=== PATIENT | male | born 1955 | race African-American/Black ===

== ENCOUNTER 2017-06-25 13:13 | Inpatient (IN) | payer OTHER ==
--- NOTE | 2017-06-25 13:24 | PDOC ---
Attending Attestation - HPI HPI: 06/25/17 15:42 33 year old male, with significant past medical history of AIDs (CD4 254 on 02/15 ), Hep C, left visual eye loss, depression, who presents to the emergency room from [facility] complaining of sharp pleuritic chest pain that is a 4/10 in severity and worse with taking a deep breath. He had an Xray performed at [facility] that revealed a cavitary lesion and right lower lobe infiltrate. <Izzy Deras - Last Filed: 06/25/17 15:42> - Resident Resident Name: Liliana Lopez - ED Attending Attestation I have performed the following: I have examined & evaluated the patient, The case was reviewed & discussed with the resident, I agree w/resident's findings & plan, Exceptions are as noted - Physicial Exam PE: 06/27/17 09:30 gen: aaox3, nad heart: +s1s2 reg Lungs: cta b/l Abd: soft, nt/nd +bs, scaphoid abd ext: no c/c/e, no rash - Medical Decision Making 06/25/17 13:24 I, Dr. Keturah Araiza, DO, attest that this document has been prepared under my direction and personally reviewed by me in its entirety. I further attest, that it accurately reflects all work, treatment, procedures and medical decision -making performed by me. 06/25/17 14:55 a/p: 61yo male with HIV +, undetectable viral load, CD4 was 252 with RLL infiltrate/cavitary lesion on oupt imaging -will obtain ct chest with contrast -labs -cultures -ID consult -will need admission 06/25/17 16:48 case discussed with RN BABY from hospitalist who accepts pt to service under Dr. Vitale. Labs reviewed. CT pending. <Keturah Araiza - Last Filed: 06/27/17 09:31> Discharge Disposition <Izzy Deras - Last Filed: 06/25/17 15:42> - Discharge Dispostion Last Admission D/C Date: 04/10/10 Admit: Yes <Keturah Araiza - Last Filed: 06/27/17 09:31> - Diagnosis Cavitary lesion of lung - Discharge Dispostion Condition at time of disposition: Fair Heart Score/ECG Review - ECG Intrepretation Comment:: 06/25/17 14:54 sinus at 68, poor r wave progression, q waves anterior leads that are age indeterminate, nl intervals, no acute st/t wave findings <Keturah Araiza - Last Filed: 06/27/17 09:31>
--- NOTE | 2017-06-25 13:25 | PDOC ---
History of Present Illness - General Stated Complaint: R/O TB Time Seen by Provider: 06/25/17 13:14 - History of Present Illness Initial Comments: 61 year old male with HIV (CD4+ 254 02/15, VL undetectable actively on medication ) and HEP C (s/p treatment) presenting with right lower thorax chest pain, warmth, loss of appetite,and general weakness for the past few days with cavitary RLL infiltrate on CXR. States that he lifted a heavy backpack this past and felt a pain in his right lower chest the next day. The pain was non-radiating, pleuritic in nature (worse with deep inspiration), and sharp in quality ranging from a 3/10-6/10 that got better recently with Tylenol. He hasn't measured an objective fever but did have a few episodes of night sweats with general appetite loss (5-7 lb weight loss) and overall ill feeling. Denies myalgias, palpitations, syncope, SOB (outside of deep inspiration), rash, sick contacts, productive cough, hemoptysis, GI symptoms, or symptoms. His receives his care at [facility] and denies any history of immunocompromised stigmatic infection. 06/25/17 13:59 Past History - Past Medical History Allergies/Adverse Reactions: Allergies Allergy/AdvReac Type Severity Reaction Status Date / Time No Known Allergies Allergy Verified 06/25/17 15:18 Home Medications: Ambulatory Orders Emtricitab/Rilpivirine/Tenofov [Complera Tablet -] 1 each PO DAILY #30 tablet Anemia: No Asthma: No Cancer: No Cardiac Disorders: No CVA: No COPD: No CHF: No Dementia: No Diabetes: No GI Disorders: No Disorders: No HTN: No Hypercholesterolemia: No Liver Disease: No Seizures: No Thyroid Disease: No - Suicide/Smoking/Psychosocial Hx Smoking History: Never smoked Have you smoked in the past 12 months: No Number of Cigarettes Smoked Daily: 3 Cigars Per Day: 0 Hx Alcohol Use: Yes Drug/Substance Use Hx: Yes Substance Use Type: Alcohol, Cocaine Hx Substance Use Treatment: Yes Review of Systems - Review of Systems Constitutional: Yes: Chills, Loss of Appetite, Malaise. No: Weight Stable HEENTM: No: Blurred Vision, Recent change in vision, Double Vision Respiratory: No: Cough, Shortness of Breath, Productive cough Cardiac (ROS): No: Lightheadedness, Palpitations ABD/GI: No: Diarrhea, Nausea, Vomiting Musculoskeletal: No: Back Pain Neurological: No: Headache *Physical Exam - Physical Exam General Appearance: Yes: Appropriately Dressed, Thin. No: Apparent Distress HEENT: positive: EOMI, NEERAJ, Normal ENT Inspection, Normal Voice Neck: positive: Trachea midline, Normal Thyroid. negative: Tender Respiratory/Chest: positive: Lungs Clear, Normal Breath Sounds. negative: Chest Tender, Respiratory Distress Cardiovascular: positive: Regular Rhythm, Regular Rate, S1, S2. negative: JVD, Murmur Gastrointestinal/Abdominal: positive: Normal Bowel Sounds, Flat, Soft. negative : Tender Integumentary: positive: Normal Color, Dry, Warm (Warmer than usual) Neurologic: positive: Fully Oriented, Alert, Normal Response ED Treatment Course - LABORATORY CBC & Chemistry Diagram: 06/25/17 15:30 06/25/17 15:30 Medical Decision Making - Medical Decision Making 61 year old immunocompromised male (HIV with CD4 254 02/15) presenting with fever, chest pain, and decreased appetite for the past few days. Patient's VSS and labs roughyl WNL with the exception of a WBC of 13.5 and left shift. Patient admitted to hospitalist service pending chest CT with contrast. Spoke to hospitalists and Dr. Rodgers. Will give Vanc and Zosyn per Dr. Rodgers. 06/25/17 14:[address] demonstrated multiple small solitary nodules in the let middle lobe without cavitation. 06/25/17 21:59 *DC/Admit/Observation/Transfer Diagnosis at time of Disposition: Cavitary lesion of lung - Discharge Dispostion Condition at time of disposition: Fair
[2017-06-25 16:01] LABS: BASOPHIL 0.5 % (0-2.0); EOSINOPHIL 0.2 % (0-4.5); MCH 33.8 pg (25.7-33.7); MCHC 34.8 g/dl (32.0-35.9); MEAN CELL VOLUME 97.1 fl (80-96); MEAN PLT VOLUME 7.6 fl (7.5-11.1); NEUTROPHILS 85.2 % (42.8-82.8); PLATELET COUNT 244 K/MM3 (134-434); RDW 12.6 % (11.9-15.9); WHITE BLOOD COUNT 13.5 K/mm3 (4.0-10.0)
[2017-06-25 16:09] LABS: ARTERIAL BLOOD GAS BASE EXCESS 1.8 meq/l (-2-2); ARTERIAL BLOOD GAS HCO3 25.3 meq/L (22-26); ARTERIAL BLOOD GAS PO2 83.2 mmHg (80-100); ARTERIAL BLOOD GAS pH 7.44 (7.35-7.45)
[2017-06-25 16:10] LABS: TYPE OF O2 ROOM AIR
[2017-06-25 16:31] LABS: ALBUMIN 3.6 g/dl (3.4-5.0); ALK PHOS 96 U/L (45-117); ANION GAP 13 (8-16); BILIRUBIN,TOTAL 0.7 mg/dL (0.2-1.0); CALCIUM 8.6 mg/dL (8.5-10.1); CO2 26 mmol/L (21-32); CREATININE 0.8 mg/dL (0.7-1.3); GLUCOSE,RANDOM 81 mg/dL (74-106); LDH 129 U/L (87-241); SGOT/AST 17 U/L (15-37); SGPT/ALT 14 U/L (12-78); TOT PROT 8.3 g/dl (6.4-8.2)
[2017-06-25] MEDS ORDERED: VANCOMYCIN 1,000 MG in DEXTROSE 5%-WATER - 500 ML IVPB ONE (17:24)
[2017-06-25] MEDS ORDERED: PIPERACILLIN/TAZOB 4.5 GM/100 ML PRE-DOCKED IVPB ONE (17:26)
[2017-06-25] MEDS ORDERED: PIPERACILLIN/TAZOB 4.5 GM 100 ML IVPB ONE (17:55)
--- NOTE | 2017-06-25 18:51 | HP ---
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 Per the patient he started having fever and night sweats which started last Friday and stopped Friday. He already had an appt with PCP for today and was sent it. He noted to Right sided chest pain with inspiration and tylenol helped with the pain but not night sweats, denies hemoptysis. He did take some Dayquil and felt better. The patient does note 4 years ago he lived in a [facility]. He has not had any sick contacts, past exposure to TB, worked in a hospital, recent or remote travel, hiking, blood transfusion. He takes his HIV meds regularly, HIV from sexual partner. ED: per ED CXR showed ? RUL cavitary lesion ? fungal History Source: Patient Limitations to Obtaining History: No Limitations - Past Medical History Cardiovascular: Yes: HTN (no meds, borderline) Infectious Disease: Yes: HIV - Past Surgical History Additional Past Surgical History: Retinal detachement - Smoking History Smoking history: Never smoked Have you smoked in the past 12 months: No - Alcohol/Substance Use Hx Alcohol Use: Yes History of Substance Use: reports: None - Social History Usual Living Arrangement: Yes: Alone ADL: Independent Occupation: retired History of Recent Travel: No Home Medications - Allergies Allergies/Adverse Reactions: Allergies Allergy/AdvReac Type Severity Reaction Status Date / Time No Known Allergies Allergy Verified 06/25/17 15:18 - Home Medications Home Medications: Ambulatory Orders Emtricitab/Rilpivirine/Tenofov [Complera Tablet -] 1 each PO DAILY #30 tablet Family Disease History - Family Disease History Family Disease History: Heart Disease: Sister (1 with cvd, htn, (?) "tumor"), CA : Grandparent, Father (dec'd ~70s, unk ca type), Mother (dec'd ~70s, unk ca type ), Other: Brother (1 a&w), Sister, Son (1 a&w), Daughter (4 a&w) Review of Systems - Review of Systems Constitutional: reports: Chills, Fever, Loss of Appetite, Night Sweats Eyes: reports: No Symptoms HENT: reports: No Symptoms Neck: reports: No Symptoms Cardiovascular: reports: Chest Pain (right sided) Respiratory: reports: Cough Gastrointestinal: reports: No Symptoms Genitourinary: reports: No Symptoms Musculoskeletal: reports: No Symptoms Integumentary: reports: No Symptoms Neurological: reports: No Symptoms Endocrine: reports: No Symptoms Hematology/Lymphatic: reports: No Symptoms Psychiatric: reports: No Symptoms Physical Examination Vital Signs: Vital Signs Temperature 99 F 06/25/17 14:40 Pulse Rate 77 06/25/17 14:40 Respiratory Rate 20 06/25/17 14:40 Blood Pressure 118/74 06/25/17 14:40 O2 Sat by Pulse Oximetry (%) 95 06/25/17 14:40 Constitutional: Yes: Calm Eyes: Yes: Other (left eye blindness) HENT: Yes: WNL Neck: Yes: WNL Cardiovascular: Yes: Regular Rate and Rhythm, S1, S2 Respiratory: Yes: Regular, Other (Right upper lobe diminsihed, bases clear) Gastrointestinal: Yes: Normal Bowel Sounds, Soft ...Rectal Exam: Yes: WNL Renal/: Yes: WNL Musculoskeletal: Yes: WNL Extremities: Yes: WNL Edema: No Integumentary: Yes: WNL Neurological: Yes: Alert, Oriented, Cran Nerves II-XII Intact Psychiatric: Yes: Alert, Oriented Imaging - Results Cat Scan: Report Reviewed (report pending), Image Reviewed Problem List - Problems (1) Cavitary lesion of lung Code(s): J98.4 - OTHER DISORDERS OF LUNG (2) Visual loss, left eye Code(s): H54.62 - UNQUALIFIED VISUAL LOSS, LEFT EYE, NORMAL VISION RIGHT EYE (3) Tuberculosis Code(s): A15.9 - RESPIRATORY TUBERCULOSIS UNSPECIFIED Assessment/Plan Assessment: 61 year old male with HIV admitted with fever, night sweats, right sided chest pain Plan: 1. Fever/Night Sweats , rule out TB - CT chest report pending - AFB x3 - Quant gold ordered - Isolation precaution - ID will see patient 2. HIV - Continue home HIV med - CD4 count ordered 3. Fever - Blood cx sent - Collect UA - Given alejandra brito in ED 4. PPX - Lovenox sq Visit type - Emergency Visit Emergency Visit: Yes ED Registration Date: 06/25/17 Care time: The patient presented to the Emergency Department on the above date and was hospitalized for further evaluation of their emergent condition. - New Patient This patient is new to me today: Yes Date on this admission: 06/25/17 - Critical Care Critical Care patient: No
[2017-06-26 07:51] LABS: BASOPHIL 0.3 % (0-2.0); EOSINOPHIL 0.5 % (0-4.5); MCH 33.1 pg (25.7-33.7); MEAN CELL VOLUME 97.2 fl (80-96); MEAN PLT VOLUME 7.8 fl (7.5-11.1); PLATELET COUNT 260 K/MM3 (134-434); RDW 13.2 % (11.9-15.9); WHITE BLOOD COUNT 14.2 K/mm3 (4.0-10.0)
[2017-06-26 08:46] LABS: ALBUMIN 3.4 g/dl (3.4-5.0); ALK PHOS 99 U/L (45-117); ANION GAP 11 (8-16); BILIRUBIN,TOTAL 0.9 mg/dL (0.2-1.0); CALCIUM 8.6 mg/dL (8.5-10.1); CO2 25 mmol/L (21-32); CREATININE 0.9 mg/dL (0.7-1.3); GLUCOSE,RANDOM 82 mg/dL (74-106); PHOSPHOROUS 3.4 mg/dL (2.5-4.9); SGOT/AST 21 U/L (15-37); SGPT/ALT 16 U/L (12-78); TOT PROT 8.3 g/dl (6.4-8.2)
--- NOTE | 2017-06-26 08:51 | CONSULT ---
Consultation: REQUESTING PROVIDER: CONSULT REQUEST: We have been asked to medically evaluate this patient for ( specify). HISTORY OF PRESENT ILLNESS: 61 year old male with HIV (CD4+ 254 02/15, VL undetectable actively on medication ) and HEP C (s/p treatment) presenting with right lower thorax chest pain, warmth, loss of appetite,and general weakness for the past few days with cavitary RLL infiltrate on CXR. States that he lifted a heavy backpack this past and felt a pain in his right lower chest the next day. The pain was non-radiating, pleuritic in nature (worse with deep inspiration), and sharp in quality ranging from a 3/10-6/10 that got better recently with Tylenol. He hasn't measured an objective fever but did have a few episodes of night sweats with general appetite loss (5-7 lb weight loss) and overall ill feeling. Denies myalgias, palpitations, syncope, SOB (outside of deep inspiration), rash, sick contacts, productive cough, hemoptysis, GI symptoms, or symptoms. His [facility] and denies any history of immunocompromised stigmatic infection. REVIEW OF SYSTEMS: CONSTITUTIONAL: Absent: fever, chills, diaphoresis, generalized weakness, malaise, loss of appetite, weight loss 5 pounds within 2 weeks. HEENT: Absent: rhinorrhea, nasal congestion, throat pain, throat swelling, difficulty swallowing, mouth swelling, ear pain, eye pain, legal blind on left eye CARDIOVASCULAR: Absent: chest pain, syncope, palpitations, irregular heart rate, lightheadedness , peripheral edema RESPIRATORY: Absent: cough, shortness of breath, dyspnea with exertion, orthopnea, wheezing, stridor, hemoptysis GASTROINTESTINAL: Absent: abdominal pain, abdominal distension, nausea, vomiting, diarrhea, constipation, melena, hematochezia GENITOURINARY: Absent: dysuria, frequency, urgency, hesitancy, hematuria, flank pain, genital pain MUSCULOSKELETAL: Absent: myalgia, arthralgia, joint swelling, back pain, neck pain SKIN: Absent: rash, itching, pallor HEMATOLOGIC/IMMUNOLOGIC: Absent: easy bleeding, easy bruising, lymphadenopathy, frequent infections ENDOCRINE: Absent: unexplained weight gain, unexplained weight loss, heat intolerance, cold intolerance NEUROLOGIC: Absent: headache, focal weakness or paresthesias, dizziness, unsteady gait, seizure, mental status changes, bladder or bowel incontinence PSYCHIATRIC: Absent: anxiety, previous depression, suicidal or homicidal ideation, hallucinations. PHYSICAL EXAMINATION Vital Signs - 24 hr 06/25/17 06/26/17 19:42 07:52 Temperature 99.9 F H 98.1 F Pulse Rate [ 70 71 Right] Respiratory 18 16 Rate Blood Pressure 124/70 105/69 [Left Arm] O2 Sat by Pulse 96 98 Oximetry (%) GENERAL: Awake, alert, and fully oriented, in no acute distress. HEAD: Normal with no signs of trauma. 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 LUNGS: Breath sounds equal, clear to auscultation bilaterally. No wheezes, and no crackles. No accessory muscle use. HEART: Regular rate and rhythm, normal S1 and S2 without murmur, rub or gallop. ABDOMEN: Soft, nontender, not distended, normoactive bowel sounds, no guarding, no rebound, LOWER EXTREMITIES: 2+ pulses, warm, well-perfused. No calf tenderness. No peripheral edema. NEUROLOGICAL: good mentation SKIN: Warm, dry, no rashes or lesions noted. Laboratory Results - last 24 hr 06/26/17 06/26/17 06:50 06:50 WBC 14.2 H RBC 3.95 L Hgb 13.1 Hct 38.4 MCV 97.2 H MCH 33.1 MCHC 34.0 RDW 13.2 Plt Count 260 MPV 7.8 Neutrophils % 84.0 H Lymphocytes % 9.0 D Monocytes % 6.2 Eosinophils % 0.5 Basophils % 0.3 Sodium 133 L Potassium 4.0 Chloride 97 L Active Medications Generic Name Dose Route Start Last Admin Trade Name Freq PRN Reason Stop Dose Admin Emtricitabine/Rilpivirine/Tenofovir 1 each 06/26/17 10:00 Complera - PO DAILY ANABELLE Enoxaparin Sodium 40 mg 06/26/17 10:00 Lovenox - SQ DAILY ANABELLE CBC, BMP 06/26/17 06:50 06/26/17 06:50 #Chest CT 06/25/2017 Impression: Multiple peripheral solid nodular opacities with surrounding groundglass measuring up to 2.0 x 2.0 cm in the right middle lobe. No evidence of cavitation. These may be infectious, inflammatory and/ or neoplastic. Septic emboli are not excluded. Correlation and short-term interval interval follow- up chest CT within 3 months are recommended. ASSESSMENT/PLAN: 61 year old male with HIV (CD4+ 254 02/15, VL undetectable actively on medication ) and HEP C (s/p treatment) presenting with right lower thorax chest pain, warmth, loss of appetite,and general weakness for the past few days with cavitary RLL infiltrate on CXR.was admitted for further evaluation and to R/O TB . # Leuckocytosis possible TB vs Pneumonia * wbc 14 on admission * vanco/zosyn empirically was given in ED * Blood cx * UA an urine cx * Sputum cx * contimue vanco/unasyn # Possible TB * CXR * AFB smear, sputum cx * blood cx * PPD , * Consider bronchoscopy lavage * isolation precautions * consider start anti TB medicine when approved. # HIV * will continue home meds * he missed one dose yesterday # Hyponatremia * 2/2 low oral intake * start IV fluids # H/O Hep C * resolved #FEN: NS , monitor lytes, regular diet #Proph : Lovenox 40 mg daily , with early ambulation Dispo: We will continue to follow the patient. Thank you for this consultative opportunity.
--- NOTE | 2017-06-26 09:32 | PN ---
Progress Note (short form) - Note Progress Note: ID Consult This 61 year old male with history of long standing HIV presents for evaluation of right anterior pleuritic chest pain. This began 6 days ago at which time he thought it might be related to heavy lifting. However by the next day he was experiencing night sweats ? fever and loss of appetite with weight loss 5 lbs over the week. He denies any couph or hemoptysis or SOB. With regard to his HIV he has been a compliant patient taking Complera with excellent response T cells and viral load surpression. He had Hepatitis C treated SVR a year ago. His TB status has always been negative and he lives alone and does not smoke or use illicit drugs. A CT scan of the chest with contrast showed what lookslike LLL solid lesion with a cavity though read as RML lesion with no cavitation. He has no history of cardiac murmur or prior endocarditis or arrhythmia. HE notes dental cleaning 3 weeks ago and told he needed extraction of 2 left upper molars infected Selected Entries 06/25/17 19:42 Temperature 99.9 F H Pulse Rate [ 70 Right] Respiratory 18 Rate Blood Pressure 124/70 [Left Arm] O2 Sat by Pulse 96 Oximetry (%) HEENT left dental molars infected upper ? NO thrush Lung Clear Cor S1 S2 RR no murmur Abd Soft nontender no organomegaly Ext No osler nodes or [place] lesion Laboratory Tests 12/13/15 03/27/16 02/24/17 16:00 12:35 10:30 WBC Hgb Hct Plt Count Neutrophils % Lymphocytes % Monocytes % Creatinine Total Bilirubin AST ALT Alkaline Phosphatase Total Protein Albumin Absolute CD4 [place] 252 L HIV-1 RNA (PCR) log10 1.477 2.255 TB Test (QFT) 06/25/17 06/25/17 06/26/17 16:00 16:00 06:50 WBC 14.2 H Hgb 13.1 Hct 38.4 Plt Count 260 Neutrophils % 84.0 H Lymphocytes % 9.0 D Monocytes % 6.2 Creatinine Total Bilirubin AST ALT Alkaline Phosphatase Total Protein Albumin Absolute CD4 [place] HIV-1 RNA (PCR) log10 Pending TB Test (QFT) Pending 06/26/17 06:50 WBC Hgb Hct Plt Count Neutrophils % Lymphocytes % Monocytes % Creatinine 0.9 Total Bilirubin 0.9 AST 21 D ALT 16 Alkaline Phosphatase 99 Total Protein 8.3 H Albumin 3.4 Absolute CD4 [place] HIV-1 RNA (PCR) log10 TB Test (QFT) Assessment Suspect septic embolus from infected dentition Thus we have to consider bacterial endocarditis Plan Blood cultures x 3 -4 sets Sputum culture Urine c/s CRP ESR ECHO Vancomycin and Unasysn TB work fine includes AFB PCR and smear though I do no think TB is high on the list of possibilities given the acute symptoms Milagros WU Problem List - Problems (1) Cavitary lesion of lung Code(s): J98.4 - OTHER DISORDERS OF LUNG (2) HIV antibody positive Code(s): Z21 - ASYMPTOMATIC HUMAN IMMUNODEFICIENCY VIRUS INFECTION STATUS (3) Endocarditis Code(s): I38 - ENDOCARDITIS, VALVE UNSPECIFIED
[2017-06-26] MEDS ORDERED: EMTRICITAB/RILPIVIRINE/TENOFOV 1 EACH TABLET PO SCH (10:00)
[2017-06-26] MEDS ORDERED: VANCOMYCIN 1 GRAM (PRE-DOCKED) 250 ML IVPB ONE (10:16)
[2017-06-26] MEDS: VANCOMYCIN 1,000 MG in DEXTROSE 5%-WATER - 250 ML IVPB SCH ×2 (10:27→22:44)
--- NOTE | 2017-06-26 10:48 | EKG ---
Test Reason : Blood Pressure : / mmHG Vent. Rate : 058 BPM Atrial Rate : 058 BPM P-R Int : 130 ms QRS Dur : 074 ms QT Int : 402 ms P-R-T Axes : 064 019 062 degrees QTc Int : 394 ms SINUS BRADYCARDIA POSSIBLE LEFT ATRIAL ENLARGEMENT BORDERLINE ECG WHEN COMPARED WITH ECG OF 23-OCT-2016 10:09, NO SIGNIFICANT CHANGE WAS FOUND Confirmed by ALDO WU, ANA ([id number]) on 06/26/2017 10:47:34 AM Referred By: GUSTAVO Confirmed By:ANA CARLSON MD
[2017-06-26] MEDS: AMPICILLIN NA/SULBACTAM NA 1.5 GM in SODIUM CHLORIDE 100 ML IVPB SCH ×3 (11:01→22:05)
[2017-06-26] MEDS: ENOXAPARIN NA (PORCINE) 40 MG/0.4 ML DISP.SYRIN SQ SCH (11:01)
[2017-06-26] MEDS: EMTRICITABINE 200MG/TENOFOVIR 300MG PO SCH (11:01)
--- NOTE | 2017-06-26 15:33 | PN ---
Physical Exam: SUBJECTIVE: Patient seen and examined in ED. He is feeling much better, sweats have resolved and no more fever. tmax 99.9 OBJECTIVE: Vital Signs Period Temp Pulse Resp BP Sys/[place] Pulse Ox Last 24 Hr 98.0 F-99.9 F 68-71 16-18 105-124/64-70 96-98 PE Neuro: alert, awake, cn 2-12intact HEENT: L abnormal gaze Pulm: scattered rhonchi CV: s1 s2 rrr no mrg Abd: s nt nd + bs Ext: warm, no le edema Laboratory Results - last 24 hr 06/26/17 06/26/17 06/26/17 06:50 06:50 12:10 WBC 14.2 H RBC 3.95 L Hgb 13.1 Hct 38.4 MCV 97.2 H MCH 33.1 MCHC 34.0 RDW 13.2 Plt Count 260 MPV 7.8 Neutrophils % 84.0 H Lymphocytes % 9.0 D Monocytes % 6.2 Eosinophils % 0.5 Basophils % 0.3 Sodium 133 L Potassium 4.0 Chloride 97 L Carbon Dioxide 25 Anion Gap 11 BUN 8 Creatinine 0.9 Creat Clearance w eGFR > 60 Random Glucose 82 Calcium 8.6 Phosphorus 3.4 Magnesium 2.0 Total Bilirubin 0.9 AST 21 D ALT 16 Alkaline Phosphatase 99 C-Reactive Protein 7.4 H Total Protein 8.3 H Albumin 3.4 Active Medications Generic Name Dose Route Start Last Admin Trade Name Freq PRN Reason Stop Dose Admin Efavirenz 600 mg 06/26/17 22:00 Sustiva - PO HS ANBAELLE Emtricitabine/Tenofovir 1 tab 06/26/17 10:00 06/26/17 11:01 Truvada PO 1 tab DAILY ANABELLE Administration Enoxaparin Sodium 40 mg 06/26/17 10:00 06/26/17 11:01 Lovenox - SQ 40 mg DAILY ANABELLE Administration Ampicillin Sodium/Sulbactam 100 mls @ 200 mls/hr 06/26/17 10:00 06/26/17 11:01 Sodium 1.5 gm/ Sodium Chloride IVPB 200 mls/hr Q6H-IV ANABELLE Administration Vancomycin HCl 1,000 mg/ 250 mls @ 166.667 mls/hr 06/26/17 11:00 06/26/17 10:27 Dextrose IVPB 166.667 mls/hr BID ANABELLE Administration Protocol Assessment: 61 year old male with HIV admitted with fever, night sweats, right sided chest pain Plan: 1. Fever/Night Sweats , rule out TB - Discussed with Dr. Linares, dose not feel this is TB, due to cystic appearance and less likely viral - Will stop AFB collection and isolation - Blood cultures 2 sets sent - Started vanco, Unasyn - Rule out Emboli - ECHO ordered 2. HIV - Continue home HIV med - CD4 count ordered 3. Fever - See above - Blood and urine orderd 4. PPX - Lovenox sq Problem List - Problems (1) Cavitary lesion of lung Code(s): J98.4 - OTHER DISORDERS OF LUNG (2) Visual loss, left eye Code(s): H54.62 - UNQUALIFIED VISUAL LOSS, LEFT EYE, NORMAL VISION RIGHT EYE (3) Tuberculosis Code(s): A15.9 - RESPIRATORY TUBERCULOSIS UNSPECIFIED Visit type - Emergency Visit Emergency Visit: Yes ED Registration Date: 06/25/17 Care time: The patient presented to the Emergency Department on the above date and was hospitalized for further evaluation of their emergent condition. - New Patient This patient is new to me today: No - Critical Care Critical Care patient: No
[2017-06-26] MEDS: EFAVIRENZ 600 MG TABLET PO SCH (22:07)
[2017-06-27] MEDS ORDERED: PT OWN MED DRAWER 7, Y5N ONE ×4 (01:35→22:08)
[2017-06-27 02:22] LABS: URINE APPEARANCE CLEAR; URINE BILIRUBIN NEGATIVE (NEGATIVE); URINE BLOOD NEGATIVE (NEGATIVE); URINE COLOR LTYELLOW; URINE GLUCOSE (UA) NEGATIVE (NEGATIVE); URINE KETONE NEGATIVE (NEGATIVE); URINE NITRITE NEGATIVE (NEGATIVE); URINE PROTEIN NEGATIVE (NEGATIVE); URINE UROBILINOGEN NEGATIVE mg/dL (0.2-1.0)
[2017-06-27] MEDS: AMPICILLIN NA/SULBACTAM NA 1.5 GM in SODIUM CHLORIDE 100 ML IVPB SCH ×4 (02:35→21:24)
[2017-06-27 02:58] VITALS: BMI 17.6
[2017-06-27 07:32] LABS: MCH 33.6 pg (25.7-33.7); MCHC 34.7 g/dl (32.0-35.9); MEAN CELL VOLUME 96.7 fl (80-96); MEAN PLT VOLUME 7.8 fl (7.5-11.1); PLATELET COUNT 286 K/MM3 (134-434); RDW 12.8 % (11.9-15.9); WHITE BLOOD COUNT 12.4 K/mm3 (4.0-10.0)
[2017-06-27] MEDS ORDERED: PNEUMOC 13-VAL CONJ-DIP CRM/PF 0.5 ML DISP.SYRIN IM ONE (10:00)
[2017-06-27] MEDS ORDERED: FLU VACCINE QUAD 60 MCG/0.5 ML (MDV 17-18) IM ONE (10:00)
[2017-06-27] MEDS ORDERED: PNEUMOCOCCAL 23 VACCINE 0.5 ML VIAL IM ONE (10:00)
[2017-06-27 10:14] LABS: URINE LEUK ESTERASE Negative (NEGATIVE)
[2017-06-27] MEDS: ENOXAPARIN NA (PORCINE) 40 MG/0.4 ML DISP.SYRIN SQ SCH (11:03)
[2017-06-27] MEDS: VANCOMYCIN 1,000 MG in DEXTROSE 5%-WATER - 250 ML IVPB SCH (11:03)
[2017-06-27] MEDS: EMTRICITABINE 200MG/TENOFOVIR 300MG PO SCH (11:04)
--- NOTE | 2017-06-27 11:15 | PN ---
Physical Exam: SUBJECTIVE: Patient seen and examined. He feels well, no cough, night sweats, no chest pain. OBJECTIVE: Vital Signs Period Temp Pulse Resp BP Sys/[place] Pulse Ox Last 24 Hr 98.0 F-99.7 F 63-76 16-20 100-126/64-78 94-96 PE Neuro: alert, awake, cn 2-12intact HEENT: L abnormal gaze Pulm: diminished, rhonchi r>L lobe CV: s1 s2 rrr no mrg Abd: s nt nd + bs Ext: warm, no le edema Laboratory Results - last 24 hr 06/26/17 06/27/17 06/27/17 12:10 02:15 03:44 WBC RBC Hgb Hct MCV MCH MCHC RDW Plt Count MPV Carboxyhemoglobin 1.2 Methemoglobin 1.0 C-Reactive Protein 7.4 H Urine Color Ltyellow Urine Appearance Clear Urine pH 6.0 Ur Specific [place] 1.010 Urine Protein Negative Urine Glucose (UA) Negative Urine Ketones Negative Urine Blood Negative Urine Nitrite Negative Urine Bilirubin Negative Urine Urobilinogen Negative Ur Leukocyte Esterase Negative 06/27/17 06:35 WBC 12.4 H RBC 3.95 L Hgb 13.2 Hct 38.2 MCV 96.7 H MCH 33.6 MCHC 34.7 RDW 12.8 Plt Count 286 MPV 7.8 Carboxyhemoglobin Methemoglobin C-Reactive Protein Urine Color Urine Appearance Urine pH Ur Specific [place] Urine Protein Urine Glucose (UA) Urine Ketones Urine Blood Urine Nitrite Urine Bilirubin Urine Urobilinogen Ur Leukocyte Esterase Active Medications Generic Name Dose Route Start Last Admin Trade Name Jonn PRN Reason Stop Dose Admin Efavirenz 600 mg 06/26/17 22:00 06/26/17 22:07 Sustiva - PO 600 mg HS ANABELLE Administration Emtricitabine/Tenofovir 1 tab 06/26/17 10:00 06/27/17 11:04 Truvada PO 1 tab DAILY ANABELLE Administration Enoxaparin Sodium 40 mg 06/26/17 10:00 06/27/17 11:03 Lovenox - SQ 40 mg DAILY ANABELLE Administration Ampicillin Sodium/Sulbactam 100 mls @ 200 mls/hr 06/26/17 10:00 06/27/17 09:58 Sodium 1.5 gm/ Sodium Chloride IVPB 200 mls/hr Q6H-IV ANABELLE Administration Vancomycin HCl 1,000 mg/ 250 mls @ 166.667 mls/hr 06/26/17 11:00 06/27/17 11:03 Dextrose IVPB 166.667 mls/hr BID ANABELLE Administration Protocol Microbiology 06/25/17 15:30 Blood - Peripheral Venous Blood Culture - Preliminary NO GROWTH OBTAINED AFTER 24 HOURS, INCUBATION TO CONTINUE FOR 4 DAYS. 06/25/17 15:21 Blood - Peripheral Venous Blood Culture - Preliminary NO GROWTH OBTAINED AFTER 24 HOURS, INCUBATION TO CONTINUE FOR 4 DAYS. Assessment: 61 year old male with HIV admitted with fever, night sweats, right sided chest pain. Plan: 1. Fever/Night Sweats - 1st set BC NGTD - 2nd set drawn today; pending - Leukocytosis improving - Continue vanco, unasyn per ID - ECHO negative for emboli, LVSF and RV normal, mild TR 2. Multiple pulmonary nodules -Possible neoplasm of peripheral solid nodular opacities w/ surrounding opacities, f/u CT in 3 months - Pulmonary consult requested 3. HIV - Continue home HIV med 4. Fever - Resolved - Work up above 5. PPX - Lovenox sq Problem List - Problems (1) Cavitary lesion of lung Code(s): J98.4 - OTHER DISORDERS OF LUNG (2) Visual loss, left eye Code(s): H54.62 - UNQUALIFIED VISUAL LOSS, LEFT EYE, NORMAL VISION RIGHT EYE (3) Tuberculosis Code(s): A15.9 - RESPIRATORY TUBERCULOSIS UNSPECIFIED Visit type - Emergency Visit Emergency Visit: Yes ED Registration Date: 06/25/17 Care time: The patient presented to the Emergency Department on the above date and was hospitalized for further evaluation of their emergent condition. - New Patient This patient is new to me today: No - Critical Care Critical Care patient: No
--- NOTE | 2017-06-27 11:48 | PN ---
Physical Exam: SUBJECTIVE: Patient seen and examined at bedside. No acute events over night. He denies any fever, chills, N/V/D/C. Denies cp, sob, abdominal pain or any urinaty symptoms. OBJECTIVE: Vital Signs Period Temp Pulse Resp BP Sys/[place] Pulse Ox Last 24 Hr 98.0 F-99.7 F 63-76 16-20 100-126/64-78 94-96 GENERAL: Awake, alert, and fully oriented, in no acute distress. HEAD: Normal with no signs of trauma. 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 LUNGS: Breath sounds equal, clear to auscultation bilaterally. No wheezes, and no crackles. No accessory muscle use. HEART: Regular rate and rhythm, normal S1 and S2 without murmur, rub or gallop. ABDOMEN: Soft, nontender, not distended, normoactive bowel sounds, no guarding, no rebound, LOWER EXTREMITIES: 2+ pulses, warm, well-perfused. No calf tenderness. No peripheral edema. NEUROLOGICAL: good mentation SKIN: Warm, dry, no rashes or lesions noted. Laboratory Results - last 24 hr 06/26/17 06/27/17 06/27/17 12:10 02:15 03:44 WBC RBC Hgb Hct MCV MCH MCHC RDW Plt Count MPV Carboxyhemoglobin 1.2 Methemoglobin 1.0 C-Reactive Protein 7.4 H Urine Color Ltyellow Urine Appearance Clear Urine pH 6.0 Ur Specific [place] 1.010 Urine Protein Negative Urine Glucose (UA) Negative Urine Ketones Negative Urine Blood Negative Urine Nitrite Negative Urine Bilirubin Negative Urine Urobilinogen Negative Ur Leukocyte Esterase Negative 06/27/17 06:35 WBC 12.4 H RBC 3.95 L Hgb 13.2 Hct 38.2 MCV 96.7 H MCH 33.6 MCHC 34.7 RDW 12.8 Plt Count 286 MPV 7.8 Carboxyhemoglobin Methemoglobin C-Reactive Protein Urine Color Urine Appearance Urine pH Ur Specific [place] Urine Protein Urine Glucose (UA) Urine Ketones Urine Blood Urine Nitrite Urine Bilirubin Urine Urobilinogen Ur Leukocyte Esterase Active Medications Generic Name Dose Route Start Last Admin Trade Name Freq PRN Reason Stop Dose Admin Efavirenz 600 mg 06/26/17 22:00 06/26/17 22:07 Sustiva - PO 600 mg HS ANABELLE Administration Emtricitabine/Tenofovir 1 tab 06/26/17 10:00 06/27/17 11:04 Truvada PO 1 tab DAILY ANABELLE Administration Enoxaparin Sodium 40 mg 06/26/17 10:00 06/27/17 11:03 Lovenox - SQ 40 mg DAILY ANABELLE Administration Ampicillin Sodium/Sulbactam 100 mls @ 200 mls/hr 06/26/17 10:00 06/27/17 09:58 Sodium 1.5 gm/ Sodium Chloride IVPB 200 mls/hr Q6H-IV ANABELLE Administration Vancomycin HCl 1,000 mg/ 250 mls @ 166.667 mls/hr 06/26/17 11:00 06/27/17 11:03 Dextrose IVPB 166.667 mls/hr BID ANABELLE Administration Protocol Microbiology 06/25/17 15:30 Blood - Peripheral Venous Blood Culture - Preliminary NO GROWTH OBTAINED AFTER 24 HOURS, INCUBATION TO CONTINUE FOR 4 DAYS. 06/25/17 15:21 Blood - Peripheral Venous Blood Culture - Preliminary NO GROWTH OBTAINED AFTER 24 HOURS, INCUBATION TO CONTINUE FOR 4 DAYS. CBC, BMP 06/27/17 06:35 06/26/17 06:50 #C[address] 06/25/2017 Impression: Multiple peripheral solid nodular opacities with surrounding groundglass measuring up to 2.0 x 2.0 cm in the right middle lobe. No evidence of cavitation. These may be infectious, inflammatory and/ or neoplastic. Septic emboli are not excluded. Correlation and short-term interval interval follow- up chest CT within 3 months are recommended. ASSESSMENT/PLAN: 61 year old male with HIV (CD4+ 254 02/15, VL undetectable actively on medication ) and HEP C (s/p treatment) presenting with right lower thorax chest pain, warmth, loss of appetite,and general weakness for the past few days with cavitary RLL infiltrate on CXR.was admitted for further evaluation and to R/O TB . # Leuckocytosis possible TB vs Pneumonia * wbc 14 on admission , trend to 12.4 today * vanco/zosyn empirically was given in ED * Blood cx no growth over 24 hours * F/U UA an urine cx * F/U Sputum cx * contimue vanco/unasyn day 2 # Possible TB * CXR * AFB smear, sputum cx * blood cx * PPD , * D/C isolation precautions unlikely TB # HIV * will continue home meds * he missed one dose yesterday # Hyponatremia * 2/2 low oral intake * Encurage oral intake # H/O Hep C * resolved #FEN: no fluids , monitor lytes, regular diet #Proph : Lovenox 40 mg daily , with early ambulation
--- NOTE | 2017-06-27 13:29 | PN ---
Progress Note, Physician Chief Complaint: ID Asymptomatic NO chest pain pleuritis fever chills Low grade temp 99.7 - Current Medication List Current Medications: Active Medications Efavirenz (Sustiva -) 600 mg PO HS [facility] Last Admin: 06/26/17 22:07 Dose: 600 mg Emtricitabine/Tenofovir (Truvada) 1 tab PO DAILY [facility] Last Admin: 06/27/17 11:04 Dose: 1 tab Enoxaparin Sodium (Lovenox -) 40 mg SQ DAILY [facility] Last Admin: 06/27/17 11:03 Dose: 40 mg Ampicillin Sodium/Sulbactam (Sodium 1.5 gm/ Sodium Chloride) 100 mls @ 200 mls/ hr IVPB Q6H-IV [facility] Last Admin: 06/27/17 09:58 Dose: 200 mls/hr Vancomycin HCl 1,000 mg/ (Dextrose) 250 mls @ 166.667 mls/hr IVPB BID ANABELLE PRN Reason: Protocol Last Admin: 06/27/17 11:03 Dose: 166.667 mls/hr - Objective Vital Signs: Vital Signs Temperature 99.7 F H 06/27/17 06:01 Pulse Rate 76 06/27/17 06:01 Respiratory Rate 20 06/27/17 06:01 Blood Pressure 116/71 06/27/17 06:01 O2 Sat by Pulse Oximetry (%) 94 L 06/26/17 20:00 Constitutional: Yes: Well Nourished, No Distress HENT: Yes: WNL, Atraumatic Neck: Yes: WNL, Supple Cardiovascular: Yes: Regular Rate and Rhythm, S1, S2. No: Murmur Respiratory: Yes: WNL, Regular, CTA Bilaterally. No: Rales, Rhonchi Gastrointestinal: Yes: WNL, Normal Bowel Sounds, Soft. No: Tenderness, Epigastrium, Tenderness, Rebound Edema: No Labs: CBC, BMP 06/27/17 06:35 06/26/17 06:50 Problem List - Problems (1) Cavitary lesion of lung Code(s): J98.4 - OTHER DISORDERS OF LUNG (2) HIV antibody positive Code(s): Z21 - ASYMPTOMATIC HUMAN IMMUNODEFICIENCY VIRUS INFECTION STATUS (3) Endocarditis Code(s): I38 - ENDOCARDITIS, VALVE UNSPECIFIED Assessment/Plan Microbiology 06/26/17 12:15 Blood - Peripheral Venous Blood Culture - Preliminary NO GROWTH OBTAINED AFTER 24 HOURS, INCUBATION TO CONTINUE FOR 4 DAYS. 06/26/17 12:15 Blood - Peripheral Venous Blood Culture - Preliminary NO GROWTH OBTAINED AFTER 24 HOURS, INCUBATION TO CONTINUE FOR 4 DAYS. 06/25/17 15:30 Blood - Peripheral Venous Blood Culture - Preliminary NO GROWTH OBTAINED AFTER 24 HOURS, INCUBATION TO CONTINUE FOR 4 DAYS. 06/25/17 15:21 Blood - Peripheral Venous Blood Culture - Preliminary NO GROWTH OBTAINED AFTER 24 HOURS, INCUBATION TO CONTINUE FOR 4 DAYS. Laboratory Tests 06/25/17 06/26/17 06/26/17 15:30 06:50 06:50 WBC 13.5 H D 14.2 H Hgb Plt Count ESR BUN 8 Creatinine 0.9 C-Reactive Protein 06/26/17 06/27/17 06/27/17 12:10 06:35 06:35 WBC 12.4 H Hgb 13.2 Plt Count 286 ESR 51 H BUN Creatinine C-Reactive Protein 7.4 H Assessment Suspect pulmonary lesions emobic on basis of ? transient bacteremia related to Gingivitis infected molar 2D ECHO no vegetations seen Plan Lab will hold blood culture 28 days for fastitious organisms ( HACEK) Continue Unasyn Will let vancomycin "drop off: IF he does well will consider switch to po antibiotics next week and serially observe the CT findings Milagros WU
--- NOTE | 2017-06-27 15:13 | PN ---
Progress Note (short form) - Note Progress Note: PULMONARY CONSULTATION DICTATED 06/27/17 IMP BILATERAL PULMONARY NODULES LIKELY INFECTIOUS,?INFLAMMATORY,? MALIGNANT H/O HIV H/O HEP C PLAN ANTIBIOTICS PER ID CONTINUE ART F/U CHEST CT 4-6 TO DOCUMENT RESOLUTION OF PULMONARY NODULES,IF NO CHANGE WILL SCHEDULE CT GUIDED ASPIRATION BX DR JACOBO Problem List - Problems (1) Cavitary lesion of lung Code(s): J98.4 - OTHER DISORDERS OF LUNG (2) Opacity of lung on imaging study Code(s): R91.8 - OTHER NONSPECIFIC ABNORMAL FINDING OF LUNG FIELD (3) Visual loss, left eye Code(s): H54.62 - UNQUALIFIED VISUAL LOSS, LEFT EYE, NORMAL VISION RIGHT EYE (4) Pulmonary nodules/lesions, multiple Code(s): R91.8 - OTHER NONSPECIFIC ABNORMAL FINDING OF LUNG FIELD (5) HIV antibody positive Code(s): Z21 - ASYMPTOMATIC HUMAN IMMUNODEFICIENCY VIRUS INFECTION STATUS
--- NOTE | 2017-06-27 16:16 | CONS ---
PULMONARY CONSULTATION DATE OF CONSULTATION: 06/27/2017 REFERRING PHYSICIAN: Adolfo Linares MD The patient is a 61-year-old black male with past medical of HIV, hepatitis C, left visual eye loss, depression, admitted to [facility] on June 25, with complaint of a 1-week history of pleuritic chest pain, shortness of breath , and night sweats. The patient states he was doing well, until approximately a week or so, when he started developing chest pain described as right-sided increasing with inspiration. He also started getting night sweats, as well as possible fever, and loss of appetite, with a 5-pound weight loss over a week. He denies any hemoptysis or persistent cough. He denies any recent travel. As stated before, he has a history of HIV and has been compliant with his Complera with a good T-cell response and viral load suppression. He has a history of hepatitis C treated with SVR a year ago. Apparently, he has had TB negative in the past. The patient underwent a CT scan chest which revealed bilateral pulmonary nodules. He was placed on broad-spectrum antibiotics with good clinical response. The patient is a nonsmoker. There is no history of occupational exposure to chemicals or fumes. He denies any history of respiratory failure in the past or ventilatory support. He denies a history of DVT or PE in the past. The patient states he had dental cleaning approximately 3 weeks ago and was told he had to have 2 molars extracted which he has not yet done. PAST MEDICAL HISTORY: Again, includes HIV, hepatitis C. SOCIAL HISTORY: Again, a nonsmoker, no occupational exposure. CURRENT MEDICATIONS: Include Unasyn, Lovenox, Sustiva, and Truvada. REVIEW OF SYSTEMS: No shortness of breath. Has occasional chest pain which has resolved. Positive night sweats which are resolving. No hemoptysis. No abdominal pain. Positive weight loss. PHYSICAL EXAMINATION: General: The patient is a well-developed, well-nourished male, awake, alert, in no acute distress. Vital signs: He is currently afebrile, heart rate is 65, respiratory rate is 20 , O2 saturation is 97% on room air. HEENT: Exam is normocephalic, atraumatic. Neck: Supple. Heart: Regular S1 and S2. Chest: Clear. Abdomen: Soft. Bowel sounds positive. Extremities: No cyanosis or edema. LABORATORIES: WBC is 12.4, hemoglobin 13.2, hematocrit 38.2, with a platelet count of 286,000. ESR is 51. Blood gas: PH of 7.44, PCO2 of 37.8, PO2 of 83.2, bicarbonate of 25.3, and a saturation of 96. Chemistries: BUN 8, creatinine 0.9. Chest CT: There are multiple peripheral solid nodular opacities of ground-glass , 2 x 2 cm, in the right middle lobe. No evidence of cavitation. Echo revealed no infiltrates, no evidence of vegetations. IMPRESSION: 1. Fever, night sweats. This is likely secondary to underlying infectious. 2. Bilateral nodular densities. Most likely inflammatory, infectious, although cannot exclude possible malignancy. 3. History of human immunodeficiency virus. 4. History of hepatitis C. PLAN: Continue antibiotic therapy. O2 p.r.n. Would obtain a followup CAT scan in 4 to 6 weeks to document resolution of the nodular densities. If no change, recommend a CT needle-aspiration biopsy. JOLLY JACOBO M.D. [id number] MTDD
[2017-06-27] MEDS: EFAVIRENZ 600 MG TABLET PO SCH (22:24)
[2017-06-28] MEDS ORDERED: PT OWN MED DRAWER 7, Y5N ONE ×3 (02:26→13:55)
[2017-06-28] MEDS: AMPICILLIN NA/SULBACTAM NA 1.5 GM in SODIUM CHLORIDE 100 ML IVPB SCH ×4 (02:28→21:35)
[2017-06-28 08:56] LABS: BASOPHIL 0.5 % (0-2.0); EOSINOPHIL 1.1 % (0-4.5); MCH 34.1 pg (25.7-33.7); MCHC 35.1 g/dl (32.0-35.9); MEAN CELL VOLUME 97.1 fl (80-96); MEAN PLT VOLUME 7.4 fl (7.5-11.1); PLATELET COUNT 317 K/MM3 (134-434); RDW 12.9 % (11.9-15.9); WHITE BLOOD COUNT 8.5 K/mm3 (4.0-10.0)
[2017-06-28] MEDS: EMTRICITABINE 200MG/TENOFOVIR 300MG PO SCH (09:04)
[2017-06-28] MEDS: ENOXAPARIN NA (PORCINE) 40 MG/0.4 ML DISP.SYRIN SQ SCH (09:04)
--- NOTE | 2017-06-28 11:42 | PN ---
Progress Note (short form) - Note Progress Note: Feels better today. Less SOB. No hemoptysis. Intake & Output 06/25/17 06/26/17 06/27/17 06/28/17 23:59 23:59 23:59 23:59 Intake Total 470 2640 825 Output Total 200 1200 Balance 270 1440 825 Weight 121 lb 116 lb Last Vital Signs Temp Pulse Resp BP Pulse Ox 97.8 F 62 20 112/62 96 06/28/17 06:00 06/28/17 06:00 06/28/17 06:00 06/28/17 06:00 06/27/17 21:00 Active Medications Efavirenz (Sustiva -) 600 mg PO HS [facility] Last Admin: 06/27/17 22:24 Dose: 600 mg Emtricitabine/Tenofovir (Truvada) 1 tab PO DAILY [facility] Last Admin: 06/28/17 09:04 Dose: 1 tab Enoxaparin Sodium (Lovenox -) 40 mg SQ DAILY [facility] Last Admin: 06/28/17 09:04 Dose: 40 mg Ampicillin Sodium/Sulbactam (Sodium 1.5 gm/ Sodium Chloride) 100 mls @ 200 mls/ hr IVPB Q6H-IV ANABELLE Last Admin: 06/28/17 09:04 Dose: 200 mls/hr GENERAL: Awake, alert, oriented, in no acute distress. HEAD: Normal with no signs of trauma. 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 LUNGS: Breath sounds equal, clear to auscultation bilaterally. No wheezes, and no crackles. No accessory muscle use. HEART: Regular rate and rhythm, normal S1 and S2 without murmur, rub or gallop. ABDOMEN: Soft, nontender, not distended, normoactive bowel sounds, no guarding, no rebound, LOWER EXTREMITIES: 2+ pulses, warm, well-perfused. No calf tenderness. No peripheral edema. NEUROLOGICAL: good mentation SKIN: Warm, dry, no rashes or lesions noted. Laboratory Results - last 24 hr 06/27/17 06/28/17 06:35 08:17 WBC 8.5 D RBC 3.92 L Hgb 13.4 Hct 38.1 MCV 97.1 H MCH 34.1 H MCHC 35.1 RDW 12.9 Plt Count 317 MPV 7.4 L Neutrophils % 79.0 Lymphocytes % 11.9 D Monocytes % 7.5 Eosinophils % 1.1 D Basophils % 0.5 ESR 51 H Problem List - Problems (1) Cavitary lesion of lung Code(s): J98.4 - OTHER DISORDERS OF LUNG (2) Opacity of lung on imaging study Code(s): R91.8 - OTHER NONSPECIFIC ABNORMAL FINDING OF LUNG FIELD (3) Visual loss, left eye Code(s): H54.62 - UNQUALIFIED VISUAL LOSS, LEFT EYE, NORMAL VISION RIGHT EYE (4) Pulmonary nodules/lesions, multiple Code(s): R91.8 - OTHER NONSPECIFIC ABNORMAL FINDING OF LUNG FIELD (5) HIV antibody positive Code(s): Z21 - ASYMPTOMATIC HUMAN IMMUNODEFICIENCY VIRUS INFECTION STATUS IMP BILATERAL PULMONARY NODULES LIKELY INFECTIOUS,?INFLAMMATORY,? MALIGNANT H/O HIV H/O HEP C PLAN ANTIBIOTICS PER ID CONTINUE ART F/U CHEST CT 4-6 TO DOCUMENT RESOLUTION OF PULMONARY NODULES,IF NO CHANGE WILL SCHEDULE CT GUIDED ASPIRATION BX DR MARTIN
--- NOTE | 2017-06-28 12:05 | PN ---
Physical Exam: SUBJECTIVE: Patient seen and examined. He feels well, no further symptoms. He is going to walk around the unit today. OBJECTIVE: Vital Signs Period Temp Pulse Resp BP Sys/[place] Pulse Ox Last 24 Hr 97.8 F-98.5 F 62-68 20-20 108-118/62-71 96 PE Neuro: alert, awake, cn 2-12intact HEENT: L abnormal gaze Pulm: CTAB no wheezing CV: s1 s2 rrr no mrg Abd: s nt nd + bs Ext: warm, no le edema Laboratory Results - last 24 hr 06/27/17 06/28/17 06:35 08:17 WBC 8.5 D RBC 3.92 L Hgb 13.4 Hct 38.1 MCV 97.1 H MCH 34.1 H MCHC 35.1 RDW 12.9 Plt Count 317 MPV 7.4 L Neutrophils % 79.0 Lymphocytes % 11.9 D Monocytes % 7.5 Eosinophils % 1.1 D Basophils % 0.5 ESR 51 H Active Medications Generic Name Dose Route Start Last Admin Trade Name Jonn PRN Reason Stop Dose Admin Efavirenz 600 mg 06/26/17 22:00 06/27/17 22:24 Sustiva - PO 600 mg HS ANABELLE Administration Emtricitabine/Tenofovir 1 tab 06/26/17 10:00 06/28/17 09:04 Truvada PO 1 tab DAILY ANABELLE Administration Enoxaparin Sodium 40 mg 06/26/17 10:00 06/28/17 09:04 Lovenox - SQ 40 mg DAILY ANABELLE Administration Ampicillin Sodium/Sulbactam 100 mls @ 200 mls/hr 06/26/17 10:00 06/28/17 09:04 Sodium 1.5 gm/ Sodium Chloride IVPB 200 mls/hr Q6H-IV ANABELLE Administration Assessment: 61 year old male with HIV admitted with fever, night sweats, right sided chest pain. Plan: 1. Fever/Night Sweats - Possible transient bacteremia from tooth/molar extraction 3 weeks ago - Blood cx negative, will be held for 28 days r/o HACEK - ECHO negative for emboli, LVSF and RV normal, mild TR, no vegetations - WBC wnl - Continue vanco, unasyn per ID, transition to PO per ID 2. Multiple pulmonary nodules - Possible neoplasm of peripheral solid nodular opacities w/ surrounding opacities - Pulmonary follow up 3 months for re eval 3. HIV - Continue home HIV med 4. Fever - Resolved - Work up above 5. PPX - Lovenox sq Problem List - Problems (1) Cavitary lesion of lung Code(s): J98.4 - OTHER DISORDERS OF LUNG (2) Visual loss, left eye Code(s): H54.62 - UNQUALIFIED VISUAL LOSS, LEFT EYE, NORMAL VISION RIGHT EYE (3) Tuberculosis Code(s): A15.9 - RESPIRATORY TUBERCULOSIS UNSPECIFIED Visit type - Emergency Visit Emergency Visit: Yes ED Registration Date: 06/25/17 Care time: The patient presented to the Emergency Department on the above date and was hospitalized for further evaluation of their emergent condition. - New Patient This patient is new to me today: No - Critical Care Critical Care patient: No
[2017-06-28] MEDS: EFAVIRENZ 600 MG TABLET PO SCH (21:35)
[2017-06-29] MEDS: AMPICILLIN NA/SULBACTAM NA 1.5 GM in SODIUM CHLORIDE 100 ML IVPB SCH ×4 (03:01→22:22)
[2017-06-29 08:50] LABS: MCH 33.7 pg (25.7-33.7); MCHC 34.6 g/dl (32.0-35.9); MEAN CELL VOLUME 97.5 fl (80-96); MEAN PLT VOLUME 7.8 fl (7.5-11.1); PLATELET COUNT 343 K/MM3 (134-434); RDW 12.9 % (11.9-15.9); WHITE BLOOD COUNT 7.8 K/mm3 (4.0-10.0)
[2017-06-29 09:14] LABS: ANION GAP 6 (8-16); CALCIUM 8.7 mg/dL (8.5-10.1); CO2 28 mmol/L (21-32); CREATININE 0.7 mg/dL (0.7-1.3); GLUCOSE,RANDOM 86 mg/dL (74-106)
[2017-06-29] MEDS: EMTRICITABINE 200MG/TENOFOVIR 300MG PO SCH (10:07)
[2017-06-29] MEDS: ENOXAPARIN NA (PORCINE) 40 MG/0.4 ML DISP.SYRIN SQ SCH (10:07)
--- NOTE | 2017-06-29 11:30 | PN ---
Progress Note (short form) - Note Progress Note: Feels overall better. Less SOB. No hemoptysis. Intake & Output 06/26/17 06/27/17 06/28/17 06/29/17 23:59 23:59 23:59 23:59 Intake Total 470 2640 1505 440 Output Total 200 1200 Balance 270 1440 1505 440 Weight 116 lb Last Vital Signs Temp Pulse Resp BP Pulse Ox 98.2 F 62 16 102/64 98 06/29/17 06:00 06/29/17 06:00 06/29/17 06:00 06/29/17 06:00 06/28/17 21:00 Active Medications Efavirenz (Sustiva -) 600 mg PO HS [facility] Last Admin: 06/28/17 21:35 Dose: 600 mg Emtricitabine/Tenofovir (Truvada) 1 tab PO DAILY [facility] Last Admin: 06/29/17 10:07 Dose: 1 tab Enoxaparin Sodium (Lovenox -) 40 mg SQ DAILY [facility] Last Admin: 06/29/17 10:07 Dose: 40 mg Ampicillin Sodium/Sulbactam (Sodium 1.5 gm/ Sodium Chloride) 100 mls @ 200 mls/ hr IVPB Q6H-IV [facility] Last Admin: 06/29/17 10:06 Dose: 200 mls/hr GENERAL: Awake, alert, oriented, in no acute distress. HEAD: Normal with no signs of trauma. 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 LUNGS: Breath sounds equal, clear to auscultation bilaterally. No wheezes, and no crackles. No accessory muscle use. HEART: Regular rate and rhythm, normal S1 and S2 without murmur, rub or gallop. ABDOMEN: Soft, nontender, not distended, normoactive bowel sounds, no guarding, no rebound, LOWER EXTREMITIES: 2+ pulses, warm, well-perfused. No calf tenderness. No peripheral edema. NEUROLOGICAL: good mentation SKIN: Warm, dry, no rashes or lesions noted. Laboratory Results - last 24 hr 06/29/17 06/29/17 07:00 07:00 WBC 7.8 RBC 3.81 L Hgb 12.8 Hct 37.1 MCV 97.5 H MCH 33.7 MCHC 34.6 RDW 12.9 Plt Count 343 MPV 7.8 Sodium 135 L Potassium 4.6 Chloride 101 Carbon Dioxide 28 Anion Gap 6 L BUN 13 D Creatinine 0.7 D Random Glucose 86 Calcium 8.7 Problem List - Problems (1) Cavitary lesion of lung Code(s): J98.4 - OTHER DISORDERS OF LUNG (2) Opacity of lung on imaging study Code(s): R91.8 - OTHER NONSPECIFIC ABNORMAL FINDING OF LUNG FIELD (3) Visual loss, left eye Code(s): H54.62 - UNQUALIFIED VISUAL LOSS, LEFT EYE, NORMAL VISION RIGHT EYE (4) Pulmonary nodules/lesions, multiple Code(s): R91.8 - OTHER NONSPECIFIC ABNORMAL FINDING OF LUNG FIELD (5) HIV antibody positive Code(s): Z21 - ASYMPTOMATIC HUMAN IMMUNODEFICIENCY VIRUS INFECTION STATUS IMP BILATERAL PULMONARY NODULES LIKELY INFECTIOUS,?INFLAMMATORY,? MALIGNANT H/O HIV H/O HEP C PLAN ANTIBIOTICS PER ID CONTINUE ART F/U CHEST CT 4-6 TO DOCUMENT RESOLUTION OF PULMONARY NODULES,IF NO CHANGE WILL SCHEDULE CT GUIDED ASPIRATION BX DR MARTIN
--- NOTE | 2017-06-29 12:52 | PN ---
Physical Exam: SUBJECTIVE: Patient seen and examined. He is ambulating the halls he has no acute issues, feeling well. OBJECTIVE: Vital Signs Period Temp Pulse Resp BP Sys/Cordova Pulse Ox Last 24 Hr 97.9 F-98.6 F 58-67 16-20 102-106/57-75 98 PE Neuro: alert, awake, cn 2-12intact HEENT: L abnormal gaze Pulm: CTAB CV: s1 s2 rrr no mrg Abd: s nt nd + bs Ext: warm, no le edema Laboratory Results - last 24 hr 06/29/17 06/29/17 07:00 07:00 WBC 7.8 RBC 3.81 L Hgb 12.8 Hct 37.1 MCV 97.5 H MCH 33.7 MCHC 34.6 RDW 12.9 Plt Count 343 MPV 7.8 Sodium 135 L Potassium 4.6 Chloride 101 Carbon Dioxide 28 Anion Gap 6 L BUN 13 D Creatinine 0.7 D Random Glucose 86 Calcium 8.7 Active Medications Generic Name Dose Route Start Last Admin Trade Name Abhayq PRN Reason Stop Dose Admin Efavirenz 600 mg 06/26/17 22:00 06/28/17 21:35 Sustiva - PO 600 mg HS ANABELLE Administration Emtricitabine/Tenofovir 1 tab 06/26/17 10:00 06/29/17 10:07 Truvada PO 1 tab DAILY ANABELLE Administration Enoxaparin Sodium 40 mg 06/26/17 10:00 06/29/17 10:07 Lovenox - SQ 40 mg DAILY ANABELLE Administration Ampicillin Sodium/Sulbactam 100 mls @ 200 mls/hr 06/26/17 10:00 06/29/17 10:06 Sodium 1.5 gm/ Sodium Chloride IVPB 200 mls/hr Q6H-IV ANABELLE Administration Microbiology 06/26/17 12:15 Blood - Peripheral Venous Blood Culture - Preliminary NO GROWTH OBTAINED AFTER 72 HOURS, INCUBATION TO CONTINUE FOR 2 DAYS. 06/26/17 12:15 Blood - Peripheral Venous Blood Culture - Preliminary NO GROWTH OBTAINED AFTER 72 HOURS, INCUBATION TO CONTINUE FOR 2 DAYS. 06/27/17 16:24 Sputum - Expectorated Gram Stain - Final 06/27/17 16:24 Sputum - Expectorated Sputum Culture - Preliminary NORMAL RESPIRATORY MICHAEL 06/25/17 15:30 Blood - Peripheral Venous Blood Culture - Preliminary NO GROWTH OBTAINED AFTER 72 HOURS, INCUBATION TO CONTINUE FOR 2 DAYS. 06/25/17 15:21 Blood - Peripheral Venous Blood Culture - Preliminary NO GROWTH OBTAINED AFTER 72 HOURS, INCUBATION TO CONTINUE FOR 2 DAYS. Assessment: 61 year old male with HIV admitted with fever, night sweats, right sided chest pain. Plan: 1. Fever/Night Sweats - Possible transient bacteremia from tooth/molar extraction 3 weeks ago - Blood cx negative, will be held for 28 days r/o HACEK - ECHO negative for emboli, LVSF and RV normal, mild TR, no vegetations - WBC wnl - Continue vanco, unasyn per ID, transition to PO per ID 2. Multiple pulmonary nodules - Possible neoplasm of peripheral solid nodular opacities w/ surrounding opacities - Pulmonary follow up 3 months for re eval 3. HIV - Continue home HIV med 4. Fever - Resolved - Work up above 5. PPX - Lovenox sq Dispo - Likely home w PO abx per ID Friday w/ pulmonary referral - Contact info if cx grow in next 28 days [phone] Problem List - Problems (1) Cavitary lesion of lung Code(s): J98.4 - OTHER DISORDERS OF LUNG (2) Visual loss, left eye Code(s): H54.62 - UNQUALIFIED VISUAL LOSS, LEFT EYE, NORMAL VISION RIGHT EYE (3) Tuberculosis Code(s): A15.9 - RESPIRATORY TUBERCULOSIS UNSPECIFIED Visit type - Emergency Visit Emergency Visit: Yes ED Registration Date: 06/25/17 Care time: The patient presented to the Emergency Department on the above date and was hospitalized for further evaluation of their emergent condition. - New Patient This patient is new to me today: No - Critical Care Critical Care patient: No
[2017-06-29] MEDS: EFAVIRENZ 600 MG TABLET PO SCH (22:22)
[2017-06-30] MEDS: AMPICILLIN NA/SULBACTAM NA 1.5 GM in SODIUM CHLORIDE 100 ML IVPB SCH ×2 (02:36→08:48)
[2017-06-30 08:43] LABS: BASOPHIL 0.6 % (0-2.0); EOSINOPHIL 1.8 % (0-4.5); MCHC 34.9 g/dl (32.0-35.9); MEAN CELL VOLUME 97.7 fl (80-96); MEAN PLT VOLUME 7.4 fl (7.5-11.1); NEUTROPHILS 74.5 % (42.8-82.8); PLATELET COUNT 366 K/MM3 (134-434); RDW 13.1 % (11.9-15.9); WHITE BLOOD COUNT 7.6 K/mm3 (4.0-10.0)
[2017-06-30 08:58] LABS: ALBUMIN 3.2 g/dl (3.4-5.0); ANION GAP 5 (8-16); BILIRUBIN,TOTAL 0.2 mg/dL (0.2-1.0); CO2 30 mmol/L (21-32); CREATININE 0.8 mg/dL (0.7-1.3); GLUCOSE,RANDOM 88 mg/dL (74-106); SGOT/AST 21 U/L (15-37); SGPT/ALT 20 U/L (12-78); TOT PROT 8.3 g/dl (6.4-8.2)
[2017-06-30 08:59] LABS: ALK PHOS 96 U/L (45-117)
[2017-06-30] MEDS ORDERED: PT OWN MED DRAWER 7, Y5N ONE ×2 (09:50→10:34)
[2017-06-30] MEDS: EMTRICITABINE 200MG/TENOFOVIR 300MG PO SCH (10:46)
[2017-06-30] MEDS: ENOXAPARIN NA (PORCINE) 40 MG/0.4 ML DISP.SYRIN SQ SCH (10:46)
--- NOTE | 2017-06-30 11:42 | PN ---
Progress Note (short form) - Note Progress Note: PULMONARY Denies shortness of breath or chest pain. No fevers or chills. Last Vital Signs Temp Pulse Resp BP Pulse Ox 98.9 F 64 18 101/64 98 06/30/17 06:00 06/30/17 06:00 06/30/17 06:00 06/30/17 06:00 06/29/17 21:00 Gen: NAD at rest Heart: RRR Lung: distant breath sounds, no wheezes Abd: soft, nontender Ext: no edema CBC, BMP 06/30/17 08:15 06/30/17 08:15 Active Medications Efavirenz (Sustiva -) 600 mg PO HS [facility] Last Admin: 06/29/17 22:22 Dose: 600 mg Emtricitabine/Tenofovir (Truvada) 1 tab PO DAILY [facility] Last Admin: 06/30/17 10:46 Dose: 1 tab Enoxaparin Sodium (Lovenox -) 40 mg SQ DAILY [facility] Last Admin: 06/30/17 10:46 Dose: 40 mg Ampicillin Sodium/Sulbactam (Sodium 1.5 gm/ Sodium Chloride) 100 mls @ 200 mls/ hr IVPB Q6H-IV ANABELLE Last Admin: 06/30/17 08:48 Dose: 200 mls/hr A/P HIV r/o Bacteremia Lung Nodules - antibiotics per ID - will need f/u CT imaging in 4-6 weeks to ensure resolution of nodules - continue ART - DVT prophylaxis
--- NOTE | 2017-06-30 12:57 | PN ---
Physical Exam: SUBJECTIVE: Patient seen and examined at bedside. He is doing well , denies any fever, chills, N/V/D/C. denies any chest pain, sob, palpitations. OBJECTIVE: Vital Signs Period Temp Pulse Resp BP Sys/Cordova Pulse Ox Last 24 Hr 98.1 F-98.9 F 62-71 18-20 101-113/58-71 98 GENERAL: The patient is awake, alert, and fully oriented, in no acute distress. HEAD: Normal with no signs of trauma. EYES: sclera anicteric, conjunctiva clear. ENT: moist mucous membranes. LUNGS: Breath sounds equal, clear to auscultation bilaterally, no wheezes, no crackles, no accessory muscle use. HEART: Regular rate and rhythm, S1, S2 without murmur, rub or gallop. ABDOMEN: Soft, nontender, nondistended, normoactive bowel sounds, no guarding, no rebound, EXTREMITIES: warm, well-perfused, no edema. NEUROLOGICAL: good emntation, Normal speech, gait not observed. PSYCH: Normal mood, normal affect. SKIN: Warm, dry, no rashes or lesions noted Laboratory Results - last 24 hr 06/30/17 06/30/17 08:15 08:15 WBC 7.6 RBC 3.87 L Hgb 13.2 Hct 37.8 MCV 97.7 H MCH 34.0 H MCHC 34.9 RDW 13.1 Plt Count 366 MPV 7.4 L Neutrophils % 74.5 Lymphocytes % 16.5 D Monocytes % 6.6 Eosinophils % 1.8 Basophils % 0.6 Sodium 135 L Potassium 4.2 Chloride 100 Carbon Dioxide 30 Anion Gap 5 L BUN 11 Creatinine 0.8 Creat Clearance w eGFR > 60 Random Glucose 88 Calcium 9.0 Total Bilirubin 0.2 D AST 21 ALT 20 D Alkaline Phosphatase 96 Total Protein 8.3 H Albumin 3.2 L Active Medications Generic Name Dose Route Start Last Admin Trade Name Freq PRN Reason Stop Dose Admin Efavirenz 600 mg 06/26/17 22:00 06/29/17 22:22 Sustiva - PO 600 mg HS ANABELLE Administration Emtricitabine/Tenofovir 1 tab 06/26/17 10:00 06/30/17 10:46 Truvada PO 1 tab DAILY ANABELLE Administration Enoxaparin Sodium 40 mg 06/26/17 10:00 06/30/17 10:46 Lovenox - SQ 40 mg DAILY ANABELLE Administration Ampicillin Sodium/Sulbactam 100 mls @ 200 mls/hr 06/26/17 10:00 06/30/17 08:48 Sodium 1.5 gm/ Sodium Chloride IVPB 200 mls/hr Q6H-IV ANABELLE Administration CBC, BMP 06/30/17 08:15 06/30/17 08:15 Microbiology 06/27/17 16:24 Sputum - Expectorated Gram Stain - Final 06/27/17 16:24 Sputum - Expectorated Sputum Culture - Final NORMAL RESPIRATORY RAMOS 06/26/17 12:15 Blood - Peripheral Venous Blood Culture - Preliminary NO GROWTH OBTAINED AFTER 96 HOURS, INCUBATION TO CONTINUE FOR 1 DAYS. 06/26/17 12:15 Blood - Peripheral Venous Blood Culture - Preliminary NO GROWTH OBTAINED AFTER 96 HOURS, INCUBATION TO CONTINUE FOR 1 DAYS. 06/25/17 15:30 Blood - Peripheral Venous Blood Culture - Preliminary NO GROWTH OBTAINED AFTER 96 HOURS, INCUBATION TO CONTINUE FOR 1 DAYS. 06/25/17 15:21 Blood - Peripheral Venous Blood Culture - Preliminary NO GROWTH OBTAINED AFTER 96 HOURS, INCUBATION TO CONTINUE FOR 1 DAYS. ASSESSMENT/PLAN: (1) Cavitary lesion of lung Code(s): J98.4 - OTHER DISORDERS OF LUNG (2) Opacity of lung on imaging study Code(s): R91.8 - OTHER NONSPECIFIC ABNORMAL FINDING OF LUNG FIELD (3) Visual loss, left eye Code(s): H54.62 - UNQUALIFIED VISUAL LOSS, LEFT EYE, NORMAL VISION RIGHT EYE (4) Pulmonary nodules/lesions, multiple Code(s): R91.8 - OTHER NONSPECIFIC ABNORMAL FINDING OF LUNG FIELD (5) HIV antibody positive Code(s): Z21 - ASYMPTOMATIC HUMAN IMMUNODEFICIENCY VIRUS INFECTION STATUS Possible transient bacteremia secondary to moral infection with possible septic emboli Hold on Blood for 28 days to r/o HACEK infection Echo negative for vegetation Continue Unasyn , consider to switch to PO Augmentine 875 mg for 2 weeks and DC home . Blood cx negative so far, sputum cx normal ramos Patient will follow up with at [facility] in 2 weeks Patient will repeat Lung CT scan after a month- 3 months. with close clinical follow up.
--- NOTE | 2017-06-30 13:15 | PN ---
Physical Exam: SUBJECTIVE: Patient seen and examined at the bedside. States he feels well. OBJECTIVE: Vital Signs Period Temp Pulse Resp BP Sys/Cordova Pulse Ox Last 24 Hr 98.1 F-98.9 F 62-71 18-20 101-113/58-71 98 GENERAL: The patient is awake, alert, and fully oriented, in no acute distress. HEAD: Normal with no signs of trauma. EYES: sclera anicteric, conjunctiva clear. ENT: moist mucous membranes. LUNGS: Breath sounds equal, clear to auscultation bilaterally, no wheezes, no crackles, no accessory muscle use. HEART: Regular rate and rhythm ABDOMEN: Soft, nontender, nondistended, normoactive bowel sounds, no guarding, no rebound, EXTREMITIES: warm, well-perfused, no edema. NEUROLOGICAL: Normal speech, gait not observed. PSYCH: Normal mood, normal affect. SKIN: Warm, dry, no rashes or lesions noted Laboratory Results - last 24 hr 06/30/17 06/30/17 08:15 08:15 WBC 7.6 RBC 3.87 L Hgb 13.2 Hct 37.8 MCV 97.7 H MCH 34.0 H MCHC 34.9 RDW 13.1 Plt Count 366 MPV 7.4 L Neutrophils % 74.5 Lymphocytes % 16.5 D Monocytes % 6.6 Eosinophils % 1.8 Basophils % 0.6 Sodium 135 L Potassium 4.2 Chloride 100 Carbon Dioxide 30 Anion Gap 5 L BUN 11 Creatinine 0.8 Creat Clearance w eGFR > 60 Random Glucose 88 Calcium 9.0 Total Bilirubin 0.2 D AST 21 ALT 20 D Alkaline Phosphatase 96 Total Protein 8.3 H Albumin 3.2 L Active Medications Generic Name Dose Route Start Last Admin Trade Name Freq PRN Reason Stop Dose Admin Efavirenz 600 mg 06/26/17 22:00 06/29/17 22:22 Sustiva - PO 600 mg HS ANABELLE Administration Emtricitabine/Tenofovir 1 tab 06/26/17 10:00 06/30/17 10:46 Truvada PO 1 tab DAILY ANABELLE Administration Enoxaparin Sodium 40 mg 06/26/17 10:00 06/30/17 10:46 Lovenox - SQ 40 mg DAILY ANABELLE Administration Ampicillin Sodium/Sulbactam 100 mls @ 200 mls/hr 06/26/17 10:00 06/30/17 08:48 Sodium 1.5 gm/ Sodium Chloride IVPB 200 mls/hr Q6H-IV ANABELLE Administration ASSESSMENT/PLAN: Pateint is a 61 year old male with a history of HIV. He was admitted on 2016 with with fevers, night sweats, right sided chest pain. ID: Fever/Night Sweats, resolved As per ID, possible transient bacteremia from tooth/molar extraction that occurred 3 weeks ago Blood cultures negative to date, but to be held for 28 days to rule out HACEK Echo negative, no vegetations seen WBC within normal limits, denies any further night sweats On Unasyn per ID, will likely need PO antibiotics as per ID HIV, chronic Continue home HAART medications ID following Pulmonary: Multiple pulmonary nodules, acute finding Etiology unclear, may be possible neoplasm vs. infectious Pulmonary follow up 3 months for re eval and re-imaging Pulmonary referral on discharge F.E.N. Fluids: Tolerating PO Electrolytes: monitor Nutrition: regular diet Prophylaxis: GI: deferred DVT: Lovenox, ambulation Disposition: Discharge once cleared by ID. full code. Will need pulmonary referral.
--- NOTE | 2017-06-30 14:16 | PN ---
Teaching Attending Note Name of Resident: Yann Gillette ATTENDING PHYSICIAN STATEMENT I saw and evaluated the patient. I reviewed the resident's note and discussed the case with the resident. I agree with the resident's findings and plan as documented. SUBJECTIVE: Doing well NO fever or respiratory complaints OBJECTIVE: ASSESSMENT AND PLAN: Suspect bacterial pulmonary infection Endocarditis work up negative Plan Augmentin 875 bid x 14 days Will need outpt CT comparison imaging with close clinical f/u Patient will see me in the [facility] Problem List - Problems (1) Cavitary lesion of lung Code(s): J98.4 - OTHER DISORDERS OF LUNG (2) HIV antibody positive Code(s): Z21 - ASYMPTOMATIC HUMAN IMMUNODEFICIENCY VIRUS INFECTION STATUS (3) Endocarditis Code(s): I38 - ENDOCARDITIS, VALVE UNSPECIFIED
--- NOTE | 2017-06-30 15:11 | DS ---
Physical Exam: SUBJECTIVE: Patient seen and examined OBJECTIVE: Vital Signs Period Temp Pulse Resp BP Sys/Cordova Pulse Ox Last 24 Hr 98.1 F-98.9 F 62-71 18-20 101-113/58-71 98 PHYSICAL EXAM GENERAL: The patient is awake, alert, and fully oriented, in no acute distress. HEAD: Normal with no signs of trauma. EYES: sclera anicteric, conjunctiva clear. ENT: moist mucous membranes. LUNGS: Breath sounds equal, clear to auscultation bilaterally, no wheezes, no crackles, no accessory muscle use. HEART: Regular rate and rhythm ABDOMEN: Soft, nontender, nondistended, normoactive bowel sounds, no guarding, no rebound, EXTREMITIES: warm, well-perfused, no edema. NEUROLOGICAL: Normal speech, gait not observed. PSYCH: Normal mood, normal affect. SKIN: Warm, dry, no rashes or lesions noted LABS Laboratory Results - last 24 hr 06/30/17 06/30/17 08:15 08:15 WBC 7.6 RBC 3.87 L Hgb 13.2 Hct 37.8 MCV 97.7 H MCH 34.0 H MCHC 34.9 RDW 13.1 Plt Count 366 MPV 7.4 L Neutrophils % 74.5 Lymphocytes % 16.5 D Monocytes % 6.6 Eosinophils % 1.8 Basophils % 0.6 Sodium 135 L Potassium 4.2 Chloride 100 Carbon Dioxide 30 Anion Gap 5 L BUN 11 Creatinine 0.8 Creat Clearance w eGFR > 60 Random Glucose 88 Calcium 9.0 Total Bilirubin 0.2 D AST 21 ALT 20 D Alkaline Phosphatase 96 Total Protein 8.3 H Albumin 3.2 L HOSPITAL COURSE: Date of Admission:06/25/17 Date of Discharge: 06/30/17 ASSESSMENT/PLAN: Pateint is a 61 year old male with a history of HIV. He was admitted on 2016 with with fevers, night sweats, right sided chest pain. ID: Fever/Night Sweats, resolved As per ID, possible transient bacteremia from tooth/molar extraction that occurred 3 weeks ago Blood cultures negative to date, but to be held for 28 days to rule out HACEK Echo negative, no vegetations seen WBC within normal limits, denies any further night sweats To continue Augmentin 875 twice per day for 7 more days Close ID follow up outpatient HIV, chronic Continue home HAART medications ID following Pulmonary: Multiple pulmonary nodules, acute finding Etiology unclear, may be possible neoplasm vs. infectious Pulmonary follow up 3 months for re eval and re-imaging Pulmonary referral on discharge F.E.N. Fluids: Tolerating PO Electrolytes: monitor Nutrition: regular diet Disposition: Discharge to continue with Augmentin 875mg BID for 7 more days. Pulmonary follow up as an outpatient. Minutes to complete discharge: 60 Discharge Summary Reason For Visit: CAVITARY LESION OF LUNG Current Active Problems Cavitary lesion of lung (Acute) Endocarditis (Acute) HIV antibody positive (Acute) Pulmonary nodules/lesions, multiple (Acute) Tuberculosis (Acute) Condition: Improved - Instructions Diet, Activity, Other Instructions: Mr. Frye: Please continue Augmentin 875mg twice per day for 14 more days. You will need a repeat CT scan of your chest so that we can compare to the one we did when you were hospitalized. Please follow up with Dr. Ashford (address and phone no. in your discharge packet. Patient will see Dr. Linares in the [facility] within 1 week of discharge. Please continue your home HAART medications. Please call me with any questions. Lakisha Aguilar [employer] [phone] [facility] Disposition: HOME - Home Medications Comprehensive Discharge Medication List: Ambulatory Orders Emtricitab/Rilpivirine/Tenofov [Complera Tablet -] 1 each PO DAILY #30 tablet Amoxicillin/Potassium Clav [Amox-Clav 875-125 mg Tablet] 1 each PO BID #14 tablet 06/30/17 This patient is new to me today: Yes Date on this admission: 06/30/17 Emergency Visit: Yes ED Registration Date: 06/25/17 Care time: The patient presented to the Emergency Department on the above date and was hospitalized for further evaluation of their emergent condition. Critical Care patient: No - Discharge Referral Referred to [facility] No
[2017-06-30 15:32] VITALS: BP 110/68; PULSE 72; TEMP 98.3
== END 2017-06-30 15:59 | disposition home or self-care (01) | DRG 862 ==
LOC: JER 13:13 → JERBED 16:49 → J5S 06-26 19:33
PROVIDERS: ADMIT Internal Medicine; ATTEND Nurse Practitioner Family
DX: T81.4XXA Infection following a procedure, initial encounter (principal); B20 Human immunodeficiency virus [HIV] disease; E43 Unspecified severe protein-calorie malnutrition; R78.81 Bacteremia; E87.1 Hypo-osmolality and hyponatremia; Z68.1 Body mass index [BMI] 19.9 or less, adult; B19.20 Unspecified viral hepatitis C without hepatic coma; F32.9 Major depressive disorder, single episode, unspecified; H54.40 Blindness, one eye, unspecified eye; J98.4 Other disorders of lung; R91.1 Solitary pulmonary nodule; Y84.9 Medical procedure, unspecified as the cause of abnormal reaction of the patient, or of later complication, without mention of misadventure at the time of the procedure
CPT/HCPCS: 36415; 36600; 71260-TC; 80048; 80053; 81003; 82375; 82803; 83050; 83615; 83735; 84100; 85025; 85027; 85651; 86140; 87040; 87070; 87205; 90688; 93005; 93010; 93306-TC; 99285-25; G0008